=== PATIENT | female | born 1995 | race Caucasian/White ===

== ENCOUNTER 2020-02-23 09:37 | Emergency (ER) | payer SELFPAY ==
[~2020-02-23] VITALS: Ht 157.5 cm; Wt 63.5 kg
[~2020-02-23 09:37] MED LIST: CEPH500 PO; CODACEE120 PO; CYCL10 PO; Cipro500 MG PO; IBUP600 PO; MEDR150I; Norco 5-325 Ta1 EACH PO; Pyridium200 MG PO; RANI150EL PO; Verotin-Gr Cap1 EACH; Zofran Odt4 MG SL
== END 2020-02-23 10:04 | disposition home or self-care (01) ==
LOC: ER 09:37
DX: L25.9 Unspecified contact dermatitis, unspecified cause (principal); Z88.2 Allergy status to sulfonamides
CPT/HCPCS: 99283

== ENCOUNTER 2020-05-06 08:07 | Emergency (ER) | payer SELFPAY ==
[~2020-05-06] VITALS: Ht 157.5 cm; Wt 65.8 kg
== END 2020-05-06 09:28 | disposition home or self-care (01) ==
LOC: ER 08:07
DX: S92.414A Nondisplaced fracture of proximal phalanx of right great toe, initial encounter for closed fracture (principal); Z88.2 Allergy status to sulfonamides; W22.8XXA Striking against or struck by other objects, initial encounter
CPT/HCPCS: 73660; 99283-25

== ENCOUNTER → 2021-03-22 | Outpatient (CLI) | payer OTHER ==
[2021-03-23 08:11] LABS: A/G RATIO 2.1 (1.2-2.2); BASO (ABSOLUTE) 0.1 x10E3/uL (0.0-0.2); BASOS 1 % (Not Estab.); BILIRUBIN, TOTAL 0.3 mg/dL (0.0-1.2); CALCIUM, SERUM 9.2 mg/dL (8.7-10.2); CREATININE, SERUM 0.66 mg/dL (0.57-1.00); EOS 1 % (Not Estab.); EOS (ABSOLUTE) 0.1 x10E3/uL (0.0-0.4); GLOBULIN, TOTAL 2.4 g/dL (1.5-4.5); HEMATOCRIT 38.9 % (34.0-46.6); IMMATURE GRANULOCYTES 0 % (Not Estab.); LYMPHS 25 % (Not Estab.); LYMPHS (ABSOLUTE) 1.7 x10E3/uL (0.7-3.1); MCHC 33.4 g/dL (31.5-35.7); MCV 90 fL (79-97); MONOCYTES 6 % (Not Estab.); MONOCYTES(ABSOLUTE) 0.4 x10E3/uL (0.1-0.9); NEUTROPHILS 67 % (Not Estab.); NEUTROPHILS (ABSOLUTE) 4.7 x10E3/uL (1.4-7.0); PLATELETS 265 x10E3/uL (150-450); PROTEIN, TOTAL, SERUM 7.4 g/dL (6.0-8.5); RBC 4.34 x10E6/uL (3.77-5.28); RDW 11.7 % (11.7-15.4); WBC 6.9 x10E3/uL (3.4-10.8)
== END | disposition home or self-care (01) ==
LOC: LAB SHORT 11:12
PROVIDERS: Hospitalist
DX: R10.13 Epigastric pain (principal)
CPT/HCPCS: 80053; 85025

== ENCOUNTER 2021-04-08 08:44 | Emergency (ER) | payer OTHER ==
[~2021-04-08] VITALS: Ht 157.5 cm; Wt 65.8 kg
[2021-04-08 09:50] LABS: BASOPHILS ABSOLUTE AUTO 0.04 K/mm3 (0.00-0.23); BASOPHILS PERCENT AUTO 0 % (0-2); EOSINOPHILS ABSOLUTE AUTO 0.05 K/mm3 (0.00-0.68); EOSINOPHILS PERCENT AUTO 1 % (0-6); Hemoglobin 13.1 g/dL (11.5-16.0); IMMATURE GRAN ABSOLUTE AUTO 0.03 K/mm3 (0.00-0.10); IMMATURE GRAN PERCENT AUTO 0 % (0-1); LYMPHOCYTES ABSOLUTE AUTO 1.47 K/mm3 (0.84-5.20); LYMPHOCYTES PERCENT AUTO 15 % (21-46); MONOCYTES ABSOLUTE AUTO 0.87 K/mm3 (0.16-1.47); MONOCYTES PERCENT AUTO 9 % (4-13); Mean Corpuscular HGB Conc 34.5 g/dL (31.5-36.5); Mean Corpuscular Volume 87 fL (80-100); Mean Platelet Volume 10.4 fL (9.1-12.4); NEUTROPHILS ABSOLUTE AUTO 7.39 K/mm3 (1.96-9.15); NEUTROPHILS PERCENT AUTO 75 % (41-73); Platelet Count 225 K/mm3 (150-400); RDW Coefficient Variation 11.2 % (11.7-14.2); Red Blood Cell Count 4.36 M/mm3 (3.80-5.20); White Blood Cell Count 9.85 K/mm3 (4.00-11.30)
[2021-04-08 09:52] LABS: Source, Urine Clean Catch
[2021-04-08 10:01] LABS: Appearance, Urine Clear (Clear); Bilirubin, Urine Neg (Neg); Blood, Urine Neg (Neg); Color, Urine Yellow (P-Yellow); Glucose Qualitative, Urine Neg (Neg); Ketones, Urine Neg (Neg); Leukocyte Esterase, Urine Neg (Neg); Nitrite, Urine Neg (Neg); Protein, Urine Neg (Neg); Urobilinogen, Urine NORM (Normal)
[2021-04-08 10:19] LABS: Alanine Aminotransfer (ALT/SGP 23 U/L (12-78); Albumin/Globulin Ratio 1.1 (0.8-1.8); Alk Phos 66 U/L (50-136); Anion Gap 6 mmol/L (6-16); Aspartate Aminotrans (AST/SGOT 12 U/L (12-37); Bilirubin, Total 0.3 mg/dL (0.1-1.0); Blood Urea Nitrogen 8 mg/dL (8-24); Bun/Creatinine Ratio 11.8 (12.0-20.0); CO2, Blood 23 mmol/L (21-32); Calcium, Blood 9.1 mg/dL (8.5-10.1); Chloride, Blood 109 mmol/L (98-108); Creatinine, Blood 0.68 mg/dL (0.40-1.00); Globulin, Blood 3.6 g/dL (2.2-4.0); Glomerular Filtration Rate >60 (60-); Glucose, Blood 99 mg/dL (70-99); Potassium, Blood 3.7 mmol/L (3.5-5.5); Sodium, Blood 138 mmol/L (136-145); Total Protein, Blood 7.6 g/dL (6.4-8.2)
[2021-04-08] MEDS ORDERED: ONDA4ODT SL (15:00)
[2021-04-08] MEDS ORDERED: HYDR1TAB94 PO (15:00)
[2021-04-08] MEDS ORDERED: Celebrex200 MG PO (15:00)
== END 2021-04-08 15:21 | disposition home or self-care (01) ==
LOC: ER 08:44
PROVIDERS: Student in an Organized Health Care Education/Training Program
DX: N83.201 Unspecified ovarian cyst, right side (principal); Z88.2 Allergy status to sulfonamides; Z87.891 Personal history of nicotine dependence
CPT/HCPCS: 36415; 74177; 76830; 76856; 80053; 81003; 83690; 84703; 85025; 96374; 96375; J1885; J2270; J2405; Q9967